=== PATIENT | male | born 1970 | race African-American/Black ===

== ENCOUNTER 2021-06-05 12:11 | Observation (INO) | payer SELFPAY ==
[~2021-06-05] VITALS: Ht 172.7 cm; Wt 74.8 kg
[2021-06-05 12:59] LABS: HEMOGLOBIN 16.8 gm/dl (14.0-17.5); RED BLOOD COUNT 5.34 M/UL (4.20-5.50); WHITE BLOOD COUNT 8.8 K/UL (4.5-11.0)
[2021-06-05 13:45] LABS: BUN/CREATININE RATIO 11 (0-10)
[2021-06-05] MEDS ORDERED: ASPIRIN EC81 MG PO (17:44)
[2021-06-05] MEDS ORDERED: TUMERIC PO (17:46)
[2021-06-05] MEDS ORDERED: NIACIN500 M1 PO (17:48)
[2021-06-06 04:10] LABS: HEMOGLOBIN 15.4 gm/dl (14.0-17.5); RED BLOOD COUNT 4.89 M/UL (4.20-5.50); WHITE BLOOD COUNT 10.2 K/UL (4.5-11.0)
[2021-06-06 04:39] LABS: BUN/CREATININE RATIO 13 (0-10)
[2021-06-07 07:12] LABS: HEMOGLOBIN 15.2 gm/dl (14.0-17.5); RED BLOOD COUNT 5.06 M/UL (4.20-5.50)
[2021-06-07 07:14] LABS: WHITE BLOOD COUNT 7.2 K/UL (4.5-11.0)
[2021-06-07 07:51] LABS: BUN/CREATININE RATIO 13 (0-10)
[2021-06-07] MEDS ORDERED: CLOPIDOGREL75 MG PO (09:59)
[2021-06-07] MEDS ORDERED: LISINOPRIL10 MG PO (09:59)
[2021-06-07] MEDS ORDERED: AMLODIPINE BESYL5 MG PO (09:59)
[2021-06-07] MEDS ORDERED: ATORVASTATIN CA20 MG PO (09:59)
== END 2021-06-07 14:44 | disposition home or self-care (01) ==
LOC: ER1 12:11 → M/S 16:18 → CDU 16:18 → M/S 06-06 11:53
PROVIDERS: Physician Assistant; Physician Assistant Medical; ADMIT Internal Medicine
DX: I63.81 Other cerebral infarction due to occlusion or stenosis of small artery (principal); G83.21 Monoplegia of upper limb affecting right dominant side; R29.701 NIHSS score 1; I65.21 Occlusion and stenosis of right carotid artery; I10 Essential (primary) hypertension; E78.00 Pure hypercholesterolemia, unspecified; E78.5 Hyperlipidemia, unspecified; F17.210 Nicotine dependence, cigarettes, uncomplicated; Z20.822 Contact with and (suspected) exposure to COVID-19; Z88.0 Allergy status to penicillin; Z88.1 Allergy status to other antibiotic agents; Z79.82 Long term (current) use of aspirin; Z79.899 Other long term (current) drug therapy
CPT/HCPCS: ECHO; 70450; 70496; 70498; 70551; 71045; 80048; 80053; 80061; 81001; 82550; 82553; 83036; 83874; 84439; 84443; 84484; 85025; 85027; 92507; 93005; 93306; 96374; 96375; 96376; 97161; 97166; 97535; 99285; G0378; J0360; J1650; Q9967; U0002